=== PATIENT | male | born 1985 ===

== ENCOUNTER 2018-05-08 03:31 | Inpatient (IN) | payer MEDICAID ==
[2018-05-08] MEDS ORDERED: Hydrogen Peroxide 3% Soln (480ml) TP ONE (03:52)
[2018-05-08] MEDS ORDERED: Multivitamin (MVI) 10 ML, Folic Acid 1 MG, Thiamine 100 MG in Dextrose 5%/0.45% NS 1,00... IV ONE (03:57)
[2018-05-08] MEDS ORDERED: Tdap Vaccine 0.5 ml Vial (10-64 yrs) IM ONE ×2 (03:57→04:18)
[2018-05-08] MEDS ORDERED: Lidocaine 1% 20 MG/2 ML PF AMP ONE (04:20)
--- NOTE | 2018-05-08 04:27 | ED PDOC ---
HPI: Psych/Substance Abuse Time Seen by Provider: 05/08/18 03:33 Chief Complaint (Nursing): Psychiatric Evaluation Chief Complaint (Provider): Psychiatric Evaluation History Per: Patient History/Exam Limitations: no limitations Current Symptoms Are (Timing): Still Present Suicide/Self Injury Attempted (Context): Cut Wrists Modifying Factor(s): None Associated Symptoms: Anxiety, Depression Additional Complaint(s): 32 year old male with pmHx of alcohol dependency, is brought in via EMS for evaluation of self-inflicted wounds to bilateral wrists after feeling anxious and depressed prior to arrival. Patient was recently discharged at [facility] after a 2-night admission and upon returning home, he admits to cutting wrists with a hunting knife when finding out his parents were getting arrested. He states that his family is sending him to [place], after an intervention, for rehab with no alcohol use since 05/04/18. PMD: Dr. Contreras Tim Past Medical History Reviewed: Historical Data, Nursing Documentation, Vital Signs Vital Signs: Last Vital Signs Temp 98.7 F 05/08/18 03:35 Pulse 132 H 05/08/18 03:35 Resp 18 05/08/18 03:35 BP 153/111 H 05/08/18 03:35 Pulse Ox 98 05/08/18 03:35 - Surgical History Surgical History: No Surg Hx - Family History Family History: States: Unknown Family Hx - Social History Current smoker - smoking cessation education provided: No Alcohol: > 2 Drinks/Day Drugs: Denies - Home Medications Home Medications: Ambulatory Orders Medication Instructions Recorded Fluoxetine HCl [Prozac] 40 mg PO DAILY 05/08/18 Folic Acid 1 mg PO DAILY 05/08/18 Thiamine Mononitrate [Vitamin B-1] 300 mg PO DAILY 05/08/18 Acetaminophen [Tylenol 325mg tab] 650 mg PO Q6 PRN tab 05/10/18 Enoxaparin [Lovenox] 40 mg SC DAILY syr 05/10/18 LORazepam [Ativan] 2 mg IVP Q4 PRN vial 05/10/18 Pantoprazole [Protonix EC Tab] 40 mg PO DAILY ect 05/10/18 - Allergies Allergies/Adverse Reactions: Allergies Allergy/AdvReac Type Severity Reaction Status Date / Time No Known Allergies Allergy Verified 05/08/18 03:43 Review of Systems ROS Statement: Except As Marked, All Systems Reviewed And Found Negative Musculoskeletal: Positive for: Other (self-inflicted wounds to bilateral wrists) Psych: Positive for: Anxiety, Depression Physical Exam - Reviewed Nursing Documentation Reviewed: Yes Vital Signs Reviewed: Yes - Physical Exam Appears: Positive for: No Acute Distress Gastrointestinal/Abdominal: Positive for: Other (obese) Extremity: Positive for: Other ((1) 3cm linear laceration to right wrist; (2) 3cm linear laceration to left wrist. (-) active bleeding. Right knee abrasion. Scattered ecchymosis to bilateral LE.) - Laboratory Results Result Diagrams: 05/10/18 05:30 05/10/18 05:30 - ECG O2 Sat by Pulse Oximetry: 98 (RA) Pulse Ox Interpretation: Normal Medical Decision Making Medical Decision Making: Initial Impression: 32 y/o male s/p self-inflicted wounds in setting of known alcohol dependency and recent hospitalization Initial Plan: * EKG * Alcohol serum * CMP * Drug screen, urine * Crisis evaluation * Urine dipstick * CBC * Adacel 0.5ml IM * Dextrose 100mg IV per 250mls/hr * Librium 25mg PO * Accucheck * UA * 1:1 OBS Time: 424 --Bilateral wound repair performed by JOHN Baker (see procedure note). Time: 509 --Labs reviewed: demonstrates that patient did not ingest alcohol. --Speech and thought process indicative of alcohol withdrawal. At times, patient has confabulatory thoughts. Noted tachycardic on monitor, most likely, relating to alcohol withdrawal. Presently, not appropriate for psychiatric clearance due to tachycardia and probable DTS. Case referred to Dr. Sutherland. Time: 602 --Discussed case with Dr. Sutherland whom accepts patient for admission. Scribe Attestation: Documented by Sunni Fraser, acting as a scribe for Bartolo Vines MD. Provider Scribe Attestation: All medical record entries made by the Scribe were at my direction and personally dictated by me. I have reviewed the chart and agree that the record accurately reflects my personal performance of the history, physical exam, medical decision making, and the department course for this patient. I have also personally directed, reviewed, and agree with the discharge instructions and disposition. Procedures - Time-Out PA/Tech: Olivia - Laceration/Wound Repair Bilateral Wrist Wound Length (cm): 3 (bilaterally) Wound's Depth, Shape: superficial Wound Explored: clean Irrigated w/ Saline (ccs): 1 Anesthesia: 1% Lidocaine Wound Debrided: minimal Wound Complexity: Simple Progress: Consent verbally obtained from patient. Right wrist wound: closed with dermabond. Left wrist wound: closed with (10) 5.0 Nylon sutures. Patient tolerated procedure well without difficulty. Disposition - Clinical Impression Clinical Impression: Suicidal behavior with attempted self-injury, ETOH abuse - Patient ED Disposition Is Patient to be Admitted: Yes - Disposition Disposition Time: 05:00 Condition: FAIR
[2018-05-08 04:28] LABS: BASO # 0.1 K/uL (0.0-0.2); BASO % 0.6 % (0.0-2.0); EOS # 0.1 K/uL (0.0-0.7); EOS % 0.5 % (0.0-4.0); HEMOGLOBIN 16.3 g/dL (12.0-18.0); LYMPH # 1.5 K/uL (1.0-4.3); MEAN CELL VOLUME 91.1 fl (80.0-94.0); MEAN CORPUSCULAR HGB CONC 35.1 g/dL (33.0-37.0); MEAN PLATELET VOLUME 8.3 fl (7.2-11.7); MONO % 6.9 % (0.0-10.0); NRBC % 0.1 % (0.0-0.0); RBC 5.09 Mil/uL (4.40-5.90); RED CELL DISTRIBUTION WIDTH 12.7 % (11.5-14.5); WHITE BLOOD COUNT 14.6 K/uL (4.8-10.8)
[2018-05-08 04:47] LABS: ALB/GLOB RATIO 1.1 (1.0-2.1); ALT/SGPT 45 U/L (21-72); AST/SGOT 84 U/L (17-59); BLOOD UREA NITROGEN 15 mg/dl (9-20); CALCIUM 9.4 mg/dL (8.4-10.2); GFR NON-AFRICAN AMERICAN > 60
[2018-05-08 04:59] LABS: URINE BACTERIA RARE (<OCC); URINE BILIRUBIN NEGATIVE (NEGATIVE); URINE BLOOD SMALL (NEGATIVE); URINE CLARITY SLIGHTY-CLOUDY (Clear); URINE COLOR AMBER (YELLOW); URINE GLUCOSE (UA) 50 mg/dL (Normal); URINE LEUKOCYTE ESTERASE NEG Leu/uL (Negative); URINE PROTEIN >=500 mg/dL (NEGATIVE)
[2018-05-08 05:58] LABS: BARBITURATES, UR NEGATIVE (NEGATIVE); BENZODIAZEPINES, UR POSITIVE (NEGATIVE); OPIATES, UR NEGATIVE (NEGATIVE); PHENCYCLIDINE, UR NEGATIVE (NEGATIVE)
--- NOTE | 2018-05-08 08:00 | RAD ---
Date of service: 05/08/2018 HISTORY: admit COMPARISON: No prior. FINDINGS: LUNGS: Inspiratory volume appears somewhat limited. No acute infiltrate identified bilaterally nevertheless. Calcified granuloma question at the left base versus costochondral calcification. PLEURA: No significant pleural effusion identified, no pneumothorax apparent. CARDIOVASCULAR: Normal. OSSEOUS STRUCTURES: No significant abnormalities. VISUALIZED UPPER ABDOMEN: Normal. OTHER FINDINGS: None. IMPRESSION: Limited history volume. No acute infiltrate, pleural effusion or pneumothorax. Cardiomediastinal silhouette unremarkable.
[2018-05-08] MEDS ORDERED: Dextrose 5%/0.45% NS 1,000 ML IV SCH (09:30)
--- NOTE | 2018-05-08 09:39 | CP.PCM.HP ---
History of Present Illness - History of Present Illness History of Present Illness: HPI: 32 YO male with ETOH abuse was brought to [facility] ED via EMS after pt cut his wrist. Pt states that he was recently discharged from [facility] on admitted for withdrawal. Pt states that when he got home, he found out that his parents were arrested, pt was feeling depressed and cut his wrists. Additionally pt states that he has been binge drinking for past couple of days prior to being admitted to [place]. Feels "okay now," denies chest pain, abdominal pain, n/v/d/c, fevers. Denies headache, visual/auditory or tactile hallucinations. PMD: Dr. Tim PMHx: ETOH abuse SurgHx: R knee surgery FHx: Hx of DM in mother and siblings SHx: lives with family, denies smoking, hx of cocaine use (last use when he was 24), and ETOH (last drink was "few days ago" drank 3 bottles of whiskey) Allergies: NKDA Present on Admission - Present on Admission Any Indicators Present on Admission: No Review of Systems - Constitutional Constitutional: absent: Headache - Cardiovascular Cardiovascular: absent: Chest Pain, Dyspnea - Respiratory Respiratory: absent: Cough, Dyspnea - Gastrointestinal Gastrointestinal: absent: Abdominal Pain, Diarrhea, Nausea, Vomiting - Genitourinary Genitourinary: absent: Dysuria - Neurological Neurological: absent: Dizziness, Headaches Past Patient History - Past Social History Alcohol: > 2 Drinks/Day Drugs: Cocaine (last use when pt was 24) - CARDIAC Hx Cardiac Disorders: No Hx Hypertension: No - PULMONARY Hx Tuberculosis: No - NEUROLOGICAL HX Cerebrovascular Accident: No Hx Seizures: No - ENDOCRINE/METABOLIC Hx Endocrine Disorders: Yes ("pre-diabetic") - HEMATOLOGICAL/ONCOLOGICAL Hx Cancer: No Hx Human Immunodeficiency Virus (HIV): No - GENITOURINARY/GYNECOLOGICAL Hx Sexually Transmitted Disorders: No - PSYCHIATRIC Hx Psychophysiologic Disorder: Yes Hx Depression: Yes Hx Substance Use: No Other/Comment: Hx alcohol abuse - SURGICAL HISTORY Hx Surgeries: Yes Hx Orthopedic Surgery: Yes (Right knee meniscus repair) - ANESTHESIA Hx Anesthesia: Yes Hx Anesthesia Reactions: No Hx Malignant Hyperthermia: No Meds Allergies/Adverse Reactions: Allergies Allergy/AdvReac Type Severity Reaction Status Date / Time No Known Allergies Allergy Verified 05/08/18 03:43 Physical Exam - Constitutional Appears: No Acute Distress, Other (lethergic ) - Head Exam Head Exam: NORMAL INSPECTION - Eye Exam Eye Exam: Normal appearance - ENT Exam ENT Exam: Mucous Membranes Moist - Respiratory Exam Respiratory Exam: Clear to Auscultation Bilateral. absent: Wheezes - Cardiovascular Exam Cardiovascular Exam: REGULAR RHYTHM, +S1, +S2 - GI/Abdominal Exam GI & Abdominal Exam: Normal Bowel Sounds, Soft. absent: Tenderness - Extremities Exam Extremities exam: Positive for: normal inspection Additional comments: mild tremor when arms extended - Neurological Exam Neurological exam: Alert, Oriented x3 Results - Vital Signs Recent Vital Signs: Last Vital Signs Temp 98 F 05/08/18 07:29 Pulse 103 H 05/08/18 07:29 Resp 20 05/08/18 07:29 BP 139/86 05/08/18 07:29 Pulse Ox 99 05/08/18 07:29 - Labs Result Diagrams: 05/08/18 04:10 05/08/18 04:10 Labs: Laboratory Results - last 24 hr 05/08/18 05/08/18 05/08/18 03:49 04:10 04:10 WBC 14.6 H RBC 5.09 Hgb 16.3 Hct 46.4 MCV 91.1 MCH 32.0 H MCHC 35.1 RDW 12.7 Plt Count 203 MPV 8.3 Neut % (Auto) 82.0 H Lymph % (Auto) 10.0 L [place] % (Auto) 6.9 Eos % (Auto) 0.5 Baso % (Auto) 0.6 Neut # (Auto) 12.0 H Lymph # (Auto) 1.5 [place] # (Auto) 1.0 H Eos # (Auto) 0.1 Baso # (Auto) 0.1 Sodium 137 Potassium 3.8 Chloride 99 Carbon Dioxide 21 L Anion Gap 21 H BUN 15 Creatinine 0.7 L Est GFR ( Amer) > 60 Est GFR (Non-Af Amer) > 60 POC Glucose (mg/dL) 161 H Random Glucose 179 H Calcium 9.4 Magnesium Total Bilirubin 2.9 H AST 84 H ALT 45 Alkaline Phosphatase 100 Total Protein 9.4 H Albumin 5.0 Globulin 4.4 H Albumin/Globulin Ratio 1.1 TSH 3rd Generation Urine Color Urine Clarity Urine pH Ur Specific [place] Urine Protein Urine Glucose (UA) Urine Ketones Urine Blood Urine Nitrate Urine Bilirubin Urine Urobilinogen Ur Leukocyte Esterase Urine RBC (Auto) Urine Microscopic WBC Urine Bacteria Urine Opiates Screen Urine Methadone Screen Ur Barbiturates Screen Ur Phencyclidine Scrn Ur Amphetamines Screen U Benzodiazepines Scrn U Oth Cocaine Metabols U Cannabinoids Screen Alcohol, Quantitative < 10 05/08/18 05/08/18 05/08/18 04:51 04:51 06:17 WBC RBC Hgb Hct MCV MCH MCHC RDW Plt Count MPV Neut % (Auto) Lymph % (Auto) [place] % (Auto) Eos % (Auto) Baso % (Auto) Neut # (Auto) Lymph # (Auto) [place] # (Auto) Eos # (Auto) Baso # (Auto) Sodium Potassium Chloride Carbon Dioxide Anion Gap BUN Creatinine Est GFR ( Amer) Est GFR (Non-Af Amer) POC Glucose (mg/dL) Random Glucose Calcium Magnesium 2.2 Total Bilirubin AST ALT Alkaline Phosphatase Total Protein Albumin Globulin Albumin/Globulin Ratio TSH 3rd Generation 2.29 Urine Color Ros[place]inda Urine Clarity Slighty-cloudy Urine pH 6.0 Ur Specific [place] 1.033 H Urine Protein >=500 Urine Glucose (UA) 50 Urine Ketones 20 Urine Blood Small Urine Nitrate Negative Urine Bilirubin Negative Urine Urobilinogen 4.0 Ur Leukocyte Esterase Neg Urine RBC (Auto) 21 H Urine Microscopic WBC 4 Urine Bacteria Rare Urine Opiates Screen Negative Urine Methadone Screen Negative Ur Barbiturates Screen Negative Ur Phencyclidine Scrn Negative Ur Amphetamines Screen Negative U Benzodiazepines Scrn Positive U Oth Cocaine Metabols Negative U Cannabinoids Screen Negative Alcohol, Quantitative Assessment & Plan (1) ETOH abuse Status: Acute (2) Suicidal behavior with attempted self-injury Status: Acute - Assessment and Plan (Free Text) Assessment: Assessment/Plan: 32 YO male with ETOH abuse is admitted for alcohol withdrawal and suicide attempt. -psychiatry on board -admit to tele for monitor DTs -VS reviewed sig for tachycardia 108. -CIWA score currently 4 -Ativan 2mg for CIWA >8 -blood work reviewed; hemoconcentrated -repeat labs in AM Pt seen and examined with Dr. Sutherland
[2018-05-08] MEDS: Dextrose 5%/Lactated Ringer's 1,000 ML IV SCH ×2 (09:41→17:54)
--- NOTE | 2018-05-08 15:45 | CP.PCM.CON ---
History of Present Illness - History of Present Illness History of Present Illness: pt is a 32 YO male with history of alcohol abuse and deprssion was brought to [facility] ED via EMS after pt cut his wrist. Pt states that he was recently discharged from [facility] , last friday, where he was admitted for detox, after discharge pt continued to use alcohol about two bottles of whisky daily, on day of admiission, he started experiencing psychotic symptoms, with visual hallucinations, seeing people invading his home, also seeing his parents being arrested, became very fearful and depressed, so he cut his wrist while intoxicated, pt then called police so they can help his parents pt had at least three prior alcohol detox and one inpatient admnission at [facility] pt currently depressed and tearful, low energy, passive suicidal ideation, reported occasional non command auditory hallucinations Past Patient History - Past Social History Alcohol: > 2 Drinks/Day Drugs: Cocaine (last use when pt was 24) - CARDIAC Hx Cardiac Disorders: No - PULMONARY Hx Tuberculosis: No - NEUROLOGICAL HX Cerebrovascular Accident: No Hx Seizures: No - ENDOCRINE/METABOLIC Hx Endocrine Disorders: Yes ("pre-diabetic") - HEMATOLOGICAL/ONCOLOGICAL Hx Cancer: No Hx Human Immunodeficiency Virus (HIV): No - GENITOURINARY/GYNECOLOGICAL Hx Sexually Transmitted Disorders: No - PSYCHIATRIC Hx Psychophysiologic Disorder: Yes - SURGICAL HISTORY Hx Surgeries: Yes Hx Orthopedic Surgery: Yes (Right knee meniscus repair) - ANESTHESIA Hx Anesthesia: Yes Hx Anesthesia Reactions: No Hx Malignant Hyperthermia: No Meds Allergies/Adverse Reactions: Allergies Allergy/AdvReac Type Severity Reaction Status Date / Time No Known Allergies Allergy Verified 05/08/18 03:43 - Medications Medications: Current Medications Enoxaparin Sodium (Lovenox) 40 mg SC DAILY [facility] PRN Reason: Protocol Folic Acid (Folic Acid) 1 mg PO DAILY [facility] Dextrose/Lactated Ringer's (Dextrose 5%/Lactated Ringer's) 1,000 mls @ 120 mls/ hr IV .[id number] [facility] Stop: 05/09/18 09:25 Last Admin: 05/08/18 09:41 Dose: 120 mls/hr Lorazepam (Ativan) 2 mg IVP Q4 PRN PRN Reason: Agitation Pantoprazole Sodium (Protonix Ec Tab) 40 mg PO DAILY [facility] Thiamine HCl (Vitamin B1 Tab) 100 mg PO TID [facility] Physical Exam - Psychiatric Exam Additional comments: pt seen in bed, depressed mood and affect, speech soft and slow, tearful, thought form coherent , alert awake ox3 denied any current psychotic symptoms, non elicited Results - Vital Signs Recent Vital Signs: Last Vital Signs Temp 97 F L 05/08/18 09:29 Pulse 89 05/08/18 14:55 Resp 19 05/08/18 14:55 BP 138/79 05/08/18 14:55 Pulse Ox 98 05/08/18 13:53 - Labs Result Diagrams: 05/08/18 04:10 05/08/18 04:10 Labs: Laboratory Results - last 24 hr 05/08/18 05/08/18 05/08/18 03:49 04:10 04:10 WBC 14.6 H RBC 5.09 Hgb 16.3 Hct 46.4 MCV 91.1 MCH 32.0 H MCHC 35.1 RDW 12.7 Plt Count 203 MPV 8.3 Neut % (Auto) 82.0 H Lymph % (Auto) 10.0 L [place] % (Auto) 6.9 Eos % (Auto) 0.5 Baso % (Auto) 0.6 Neut # (Auto) 12.0 H Lymph # (Auto) 1.5 [place] # (Auto) 1.0 H Eos # (Auto) 0.1 Baso # (Auto) 0.1 Sodium 137 Potassium 3.8 Chloride 99 Carbon Dioxide 21 L Anion Gap 21 H BUN 15 Creatinine 0.7 L Est GFR ( Amer) > 60 Est GFR (Non-Af Amer) > 60 POC Glucose (mg/dL) 161 H Random Glucose 179 H Calcium 9.4 Magnesium Total Bilirubin 2.9 H AST 84 H ALT 45 Alkaline Phosphatase 100 Total Protein 9.4 H Albumin 5.0 Globulin 4.4 H Albumin/Globulin Ratio 1.1 TSH 3rd Generation Urine Color Urine Clarity Urine pH Ur Specific [place] Urine Protein Urine Glucose (UA) Urine Ketones Urine Blood Urine Nitrate Urine Bilirubin Urine Urobilinogen Ur Leukocyte Esterase Urine RBC (Auto) Urine Microscopic WBC Urine Bacteria Urine Opiates Screen Urine Methadone Screen Ur Barbiturates Screen Ur Phencyclidine Scrn Ur Amphetamines Screen U Benzodiazepines Scrn U Oth Cocaine Metabols U Cannabinoids Screen Alcohol, Quantitative < 10 05/08/18 05/08/18 05/08/18 04:51 04:51 06:17 WBC RBC Hgb Hct MCV MCH MCHC RDW Plt Count MPV Neut % (Auto) Lymph % (Auto) [place] % (Auto) Eos % (Auto) Baso % (Auto) Neut # (Auto) Lymph # (Auto) [place] # (Auto) Eos # (Auto) Baso # (Auto) Sodium Potassium Chloride Carbon Dioxide Anion Gap BUN Creatinine Est GFR ( Amer) Est GFR (Non-Af Amer) POC Glucose (mg/dL) Random Glucose Calcium Magnesium 2.2 Total Bilirubin AST ALT Alkaline Phosphatase Total Protein Albumin Globulin Albumin/Globulin Ratio TSH 3rd Generation 2.29 Urine Color Rosalinda Urine Clarity Slighty-cloudy Urine pH 6.0 Ur Specific [place] 1.033 H Urine Protein >=500 Urine Glucose (UA) 50 Urine Ketones 20 Urine Blood Small Urine Nitrate Negative Urine Bilirubin Negative Urine Urobilinogen 4.0 Ur Leukocyte Esterase Neg Urine RBC (Auto) 21 H Urine Microscopic WBC 4 Urine Bacteria Rare Urine Opiates Screen Negative Urine Methadone Screen Negative Ur Barbiturates Screen Negative Ur Phencyclidine Scrn Negative Ur Amphetamines Screen Negative U Benzodiazepines Scrn Positive U Oth Cocaine Metabols Negative U Cannabinoids Screen Negative Alcohol, Quantitative 05/08/18 09:50 WBC RBC Hgb Hct MCV MCH MCHC RDW Plt Count MPV Neut % (Auto) Lymph % (Auto) [place] % (Auto) Eos % (Auto) Baso % (Auto) Neut # (Auto) Lymph # (Auto) [place] # (Auto) Eos # (Auto) Baso # (Auto) Sodium Potassium Chloride Carbon Dioxide Anion Gap BUN Creatinine Est GFR ( Amer) Est GFR (Non-Af Amer) POC Glucose (mg/dL) 139 H Random Glucose Calcium Magnesium Total Bilirubin AST ALT Alkaline Phosphatase Total Protein Albumin Globulin Albumin/Globulin Ratio TSH 3rd Generation Urine Color Urine Clarity Urine pH Ur Specific [place] Urine Protein Urine Glucose (UA) Urine Ketones Urine Blood Urine Nitrate Urine Bilirubin Urine Urobilinogen Ur Leukocyte Esterase Urine RBC (Auto) Urine Microscopic WBC Urine Bacteria Urine Opiates Screen Urine Methadone Screen Ur Barbiturates Screen Ur Phencyclidine Scrn Ur Amphetamines Screen U Benzodiazepines Scrn U Oth Cocaine Metabols U Cannabinoids Screen Alcohol, Quantitative Assessment & Plan - Assessment and Plan (Free Text) Assessment: pending delirium tremens alcohol induced mood disorder with depressive features alcohol use severe Plan: pt at current mental status requires admission to psychiatric unit for stabilization continue with librium protocl pt to be admitted to psychiatry upon medical clearance, pt agreed to sign for voluntary admission to psychiatry
[2018-05-08] MEDS ORDERED: Pneumococcal 23-Valent Vaccine IM ONE (16:45)
[2018-05-09] MEDS: Dextrose 5%/Lactated Ringer's 1,000 ML IV SCH (02:00)
[2018-05-09 07:27] LABS: BASO # 0.1 K/uL (0.0-0.2); BASO % 0.6 % (0.0-2.0); EOS # 0.7 K/uL (0.0-0.7); EOS % 7.1 % (0.0-4.0); HEMOGLOBIN 15.2 g/dL (12.0-18.0); LYMPH # 2.5 K/uL (1.0-4.3); LYMPH % 24.2 % (20.0-40.0); MEAN CELL VOLUME 91.8 fl (80.0-94.0); MEAN CORPUSCULAR HEMOGLOBIN 32.2 pg (27.0-31.0); MEAN CORPUSCULAR HGB CONC 35.1 g/dL (33.0-37.0); MEAN PLATELET VOLUME 8.3 fl (7.2-11.7); MONO # 0.8 K/uL (0.0-0.8); MONO % 7.3 % (0.0-10.0); NEUT # 6.3 K/uL (1.8-7.0); NEUT % 60.8 % (50.0-75.0); RBC 4.7 Mil/uL (4.40-5.90); RED CELL DISTRIBUTION WIDTH 12.6 % (11.5-14.5); WHITE BLOOD COUNT 10.4 K/uL (4.8-10.8)
[2018-05-09 08:04] LABS: LDL CHOLESTEROL 127 mg/dL (0-129)
[2018-05-09 08:17] LABS: ALB/GLOB RATIO 1.2 (1.0-2.1); ALBUMIN 4.4 g/dL (3.5-5.0); ALT/SGPT 79 U/L (21-72); AST/SGOT 151 U/L (17-59); BLOOD UREA NITROGEN 10 mg/dl (9-20); CALCIUM 9.1 mg/dL (8.4-10.2); GFR NON-AFRICAN AMERICAN > 60; HDL CHOLESTEROL 55 MG/DL (30-70)
[2018-05-09] MEDS: Pantoprazole 40 mg EC Tab PO SCH (08:38)
[2018-05-09] MEDS: Enoxaparin 40 mg Syringe SC SCH (08:39)
--- NOTE | 2018-05-09 13:42 | PN ---
DATE: 05/09/2018 SUBJECTIVE: The patient seen and examined. The patient is seen for Dr. Sutherland while he is away. The patient remains in progressive care unit and telemetry monitoring with one-to-one observation for safety. The patient overall feels okay. Denies any chest pain or shortness of breath. Complains of bilateral wrist pain from symptoms. Feels little bit of nauseous, but no actual vomiting today. PHYSICAL EXAMINATION: GENERAL: The patient is in no acute distress. VITAL SIGNS: Stable. HEART: S1 and S2, normal and regular. LUNGS: Good bilateral air exchange. ABDOMEN: Soft and nontender. No organomegaly. No fluid. Bowel sounds are plus and normal. EXTREMITIES: No edema. No calf swelling. No tenderness. No acute ischemia. SPRAY CREW: Exam is essentially unchanged. There is no sign of any acute gross focal motor or sensory neurological deficits or any withdrawal symptoms. DIAGNOSTIC DATA: Available diagnostic data reviewed. Telemetry monitoring does not reveal any significant arrhythmias. ASSESSMENT AND PLAN: Overall, the patient's general medical condition is stable. Plan as ordered . Akbar Rice MD
--- NOTE | 2018-05-09 20:33 | CARD ---
APPROVED REPORT Date of service: 05/08/2018 EKG Measurement Heart [id number] <Conclusion> Sinus tachycardia Left axis deviation Anterolateral infarct, age undetermined Abnormal ECG
[2018-05-10 07:15] LABS: HEMOGLOBIN 14.1 g/dL (12.0-18.0); MEAN CELL VOLUME 91.7 fl (80.0-94.0); MEAN CORPUSCULAR HEMOGLOBIN 32.5 pg (27.0-31.0); MEAN CORPUSCULAR HGB CONC 35.5 g/dL (33.0-37.0); RBC 4.33 Mil/uL (4.40-5.90); RED CELL DISTRIBUTION WIDTH 12.5 % (11.5-14.5); WHITE BLOOD COUNT 8.6 K/uL (4.8-10.8)
[2018-05-10 07:40] LABS: ALB/GLOB RATIO 1.1 (1.0-2.1); ALBUMIN 3.9 g/dL (3.5-5.0); ALT/SGPT 86 U/L (21-72); AST/SGOT 136 U/L (17-59); BLOOD UREA NITROGEN 9 mg/dl (9-20); CALCIUM 8.8 mg/dL (8.4-10.2); GFR NON-AFRICAN AMERICAN > 60
[2018-05-10 08:08] VITALS: O2SAT 98
[2018-05-10] MEDS: Pantoprazole 40 mg EC Tab PO SCH (09:00)
[2018-05-10] MEDS: Enoxaparin 40 mg Syringe SC SCH (09:00)
[2018-05-10 12:10] VITALS: BP 122/71; PULSE 76; RESP 18; TEMP 98.2
--- NOTE | 2018-05-11 08:49 | PN ---
DATE: 05/10/2018 SUBJECTIVE: The patient seen and examined. Interim events noted. The patient remains in progressive care unit on telemetry monitoring with one-to-one observation for safety. The patient feels better. Denies any chest pain or shortness of breath. Wrist pain is improving. No symptoms of withdrawal. No acute suicidal ideation or planning. PHYSICAL EXAMINATION: GENERAL: The patient is in no acute distress. VITAL SIGNS: Stable. HEART: S1 and S2. Normal and regular. LUNGS: Good bilateral air exchange. ABDOMEN: Soft and nontender. EXTREMITIES: No edema. No calf swelling. No tenderness. No acute ischemia. EXPERIMENTAL BOX TESTER: Essentially unchanged. Akbar Rice MD
== END 2018-05-10 15:10 | DRG 751 ==
LOC: H.ER 03:31 → H.ERHOLD 05:10 → H.TEL 15:19
PROVIDERS: ADMIT Family Medicine; ATTEND Family Medicine
PROC: 3E0234Z Introduction of Serum, Toxoid and Vaccine into Muscle, Percutaneous Approach (ICD-10-PCS; principal; 2018-05-08)
PROC: 0HQEXZZ Repair Left Lower Arm Skin, External Approach (ICD-10-PCS; 2018-05-08)
PROC: 0HQDXZZ Repair Right Lower Arm Skin, External Approach (ICD-10-PCS; 2018-05-08)
DX: F10.231 Alcohol dependence with withdrawal delirium (principal); S61.511A Laceration without foreign body of right wrist, initial encounter; F10.24 Alcohol dependence with alcohol-induced mood disorder; S61.512A Laceration without foreign body of left wrist, initial encounter; Z23 Encounter for immunization; X78.1XXA Intentional self-harm by knife, initial encounter; F32.9 Major depressive disorder, single episode, unspecified; F41.9 Anxiety disorder, unspecified

== ENCOUNTER 2018-05-10 15:27 | Inpatient (IN) | payer MEDICAID ==
[2018-05-10] MEDS ORDERED: Magnesium Hydroxide Susp 30 ml UD PO PRN (16:10)
[2018-05-10] MEDS ORDERED: Alum-Mag Hydrox-Simethicone Susp (30 mL) PO PRN (16:10)
[2018-05-10] MEDS ORDERED: DiphenhydrAMINE 50 mg/ml Inj IM PRN (16:25)
--- NOTE | 2018-05-10 16:45 | PCM.BM ---
Treatment assets and liabiliti Patient Assests: cooperative, educated, ADL independent, good interpersonal skills Patient Liabilities: substance abuse - Milieu Protocol Maintain good personal hygiene: daily Encourage regular showers, every shift Remind patient to perform daily oral care, every shift Assist patient to perform ADL's Conduct patient checks and document Observation sheet: Q15 minutes Maintain personal safety: every shift Educate patient to report safety concerns to staff, every shift Monitor environment for contraband/sharps Medication safety: Monitor for expected outcome, potential side effects: every shift, Assess barriers to learning: every shift, Assess readiness for medication education: every shift
--- NOTE | 2018-05-10 17:07 | PCM.BM ---
<MarbleIna bueno - Last Filed: 05/10/18 17:05> Treatment Plan Problems - Problems identified on initial assessmt Anxiety Date Initiated: 05/10/18 Time Initiated: 17:05 Assessment reference: NA Status: Active Denial Date Initiated: 05/10/18 Time Initiated: 17:06 Assessment reference: NA Status: Active Treatment assets and liabiliti Patient Assests: cooperative, ADL independent Patient Liabilities: substance abuse - Milieu Protocol Maintain good personal hygiene: daily Encourage regular showers, every shift Remind patient to perform daily oral care, every shift Assist patient to perform ADL's Conduct patient checks and document Observation sheet: Q15 minutes Maintain personal safety: every shift Educate patient to report safety concerns to staff, every shift Monitor environment for contraband/sharps Medication safety: Monitor for expected outcome, potential side effects: every shift, Assess barriers to learning: every shift, Assess readiness for medication education: every shift <Benjamin Ramos - Last Filed: 05/14/18 08:28> Family Contact Family involvement: Family/SO is involved Family contact: Family has been contacted by patient, Patient declines to allow family contact at present Family contact name: Pt does not want staff to speak with family. - Goals for Treatment Patient goals for treatment: Pt has identified drinking as a problem and reported he would like to attend groups/therapy to build coping skills, identify triggers, and build his self-esteem and identitity. Discharge/Continuing Care - Education Needs Education Needs: Patient Medication, Patient Diagnosis/Disease Process, Patient Coping Skills, Patient Community resources, Patient Aftercare Safety Plan - Discharge Discharge Criteria: Tolerates medication w/o severe side effects, Free of Suicidal thoughts, Free of paranoid thoughts, Free of agitation, Normal sleep pattern, Ability to care for self, No longer exhibiting s/s of withdrawal, Reduction of target symptoms Discharge to:: Home, With Family - Treatment Team Participation Patient/Family/SO Statement: 05/13/18 10:15 Pt was seen in treatment team and reported he woke up feeling "good/better." Pt reported that he does at times still feel sad and depressed. Pt spoke about meeting John during the substance abuse group and wanted to continue outpatient treatment there. Pt reported that he does feel restless and anxious at times, but this is diminishing. Pt identified his family as supports and how they are committed to helping him fight this illness. Medications were discussed and pt reported that the Benadryl has helped with sleep and the Neurontin reduced his anxiety. Outpatient levels of care were discussed and pt spoke about how he felt he needed more time on the unit to feel confident and safe upon discharge. Pt denied SI/HI and AVT hallucinations. Discussed with Family/SO: No Was Patient/Family/SO present at Treatment Team Meeting: Yes <Elaina Melissa - Last Filed: 05/18/18 08:58> - Diagnosis (1) ETOH abuse Status: Acute Interventions: 05/18/18 08:58 motivational therapy
--- NOTE | 2018-05-11 14:34 | PCM.PSYCH ---
Initial Psychiatric Evaluation - Initial Psychiatric Evaluation Type of Admission: Voluntary Legal Status: Capacity Chief Complaint (in patient's own words): I started seeing scary things Patient's Reaction to Hospitalization: pt requested help History of Present Illness and Precipitating Events: pt is a 32 YO male with history of alcohol abuse and deprssion was brought to [facility] ED via EMS after pt cut his wrist. Pt states that he was recently discharged from [facility] , last friday, where he was admitted for detox, after discharge pt continued to use alcohol about two bottles of whisky daily, on day of admission, he started experiencing psychotic symptoms, with visual hallucinations, seeing people invading his home, also seeing his parents being arrested, became very fearful and depressed, so he cut his wrist while intoxicated, pt then called police so they can help his parents pt had at least three prior alcohol detox and one inpatient admission at [facility] pt currently depressed and tearful, low energy,low motivation, passive suicidal ideation, denied active intent or plan on the unit, denid any current psychotic symptoms, reported increased anxiety Current Medications: Active Medications Generic Name Dose Route Start Last Admin Trade Name Freq PRN Reason Stop Dose Admin Al Hydrox/Mg Hydrox/Simethicone 30 ml 05/10/18 16:10 Maalox Plus 30 Ml PO Q4 PRN Dyspepsia Aspirin 81 mg 05/11/18 09:00 05/11/18 09:59 Aspirin Chewable PO 81 mg DAILY HAYLEY Administration Atorvastatin Calcium 20 mg 05/11/18 22:00 Lipitor PO HS HAYLEY Diphenhydramine HCl 50 mg 05/10/18 16:10 05/10/18 22:59 Benadryl PO 50 mg Q6 PRN Administration Extrapyramidal Symptoms Diphenhydramine HCl 50 mg 05/10/18 16:25 Benadryl IM Q6 PRN Restlessness Gabapentin 300 mg 05/11/18 13:00 05/11/18 13:41 Neurontin PO 300 mg TID HAYLEY Administration Haloperidol 5 mg 05/10/18 16:10 05/10/18 22:59 Haldol PO 5 mg Q4 PRN Administration Agitation Haloperidol Lactate 5 mg 05/10/18 16:10 Haldol IM Q4 PRN Agitation, Unable to Take PO Hydroxyzine Pamoate 50 mg 05/11/18 10:54 Vistaril PO Q8 PRN Anxiety Ibuprofen 600 mg 05/10/18 16:17 Motrin Tab PO Q6 PRN Pain, moderate (4-7) Magnesium Hydroxide 30 ml 05/10/18 16:10 Milk Of Magnesia PO HS PRN Constipation Metformin HCl 500 mg 05/11/18 08:00 05/11/18 09:59 Glucophage PO 500 mg BIDWM HAYLEY Administration Past Psychiatric History - Past Psychiatric History Explanation of prior treatment: pt has history of alcohol use since age 16, has hx of detox twice at [facility], HISTORY OF SELF MUTILATIVE BEHAVIOR WHILE INTOXICATED History of Family Illness: HX OF DEPRESSION AND ALCOHOL USE/ BIOLOGICAL FATHER SIDE Pertinent Medical Hx (Current Medical&Sleep Prob, Allergies): Allergies Allergy/AdvReac Type Severity Reaction Status Date / Time No Known Allergies Allergy Verified 05/08/18 03:43 Fluoxetine HCl [Prozac] 40 mg PO DAILY 05/08/18 Folic Acid 1 mg PO DAILY 05/08/18 Thiamine Mononitrate [Vitamin B-1] 300 mg PO DAILY 05/08/18 Acetaminophen [Tylenol 325mg tab] 650 mg PO Q6 PRN tab 05/10/18 Enoxaparin [Lovenox] 40 mg SC DAILY syr 05/10/18 LORazepam [Ativan] 2 mg IVP Q4 PRN vial 05/10/18 Pantoprazole [Protonix EC Tab] 40 mg PO DAILY ect 05/10/18 Mental Status Examination - Affect Affect: Constricted - Motor Activity Motor Activity: Psychomotor Retardation - Speech Speech: Relevant - Mood Mood: Depressed, Anxious - Formal Thought Process Formal Thought Process: Circumstantial - Hallucinations/Delusions Additional comments: pt denied any current perceptual disturbances - Obsessions/Compulsions Obsessions: No Compulsions: No - Cognitive Functions Orientation: Person, Place, Situation Sensorium: Alert Attention/Concentration: Attentive Judgement: Imparied, as evidence by: Poor judgement, Imparied, as evidence by: Lack of insight into illness - Risk Risk: Suicidal, Withdrawal, Self-mutilation, Diminished functioning - Strength & Assets Inventory Strength & Assets Inventory: Family support - Limitations Additional comments: poor compliance DSM 5 DX - DSM 5 DSM 5 Diagnosis: alcohol induced mood disorder with depressive features alcohol use disorder pending DT'S depression - Recommended/Plan of Treatment Treatment Recommendations and Plan of Treatment: start [id number] daily for depression neurontin 300mg tid for anxiety, motivational group and supportive therapy referral to rehab on discharge Projected ELOS: 5-7 days Prognosis: guarded
--- NOTE | 2018-05-11 20:46 | CON ---
DATE: 05/11/2018 CHIEF COMPLAINT: The patient's medical consult was called for management of medical issues. HISTORY OF PRESENT ILLNESS: This is a young male who was admitted to medical floor after a suicidal attempt and depression; however, the patient ended up cutting both of his wrists in an attempt to commit suicide due to family issues. The patient was admitted to medical floor and was stabilized and was on one-to-one observation and medically stabilized and was sent to psych unit for further optimization for psychiatric issues. REVIEW OF SYSTEMS: At this time is negative for headache, dizziness, syncope, loss of consciousness, chest pain, shortness of breath, nausea, vomiting, diarrhea, constipation, and new joint or extremity pain. Review of system of all other organ system is unremarkable. PAST MEDICAL HISTORY: According to the patient is unremarkable. PAST SURGICAL HISTORY: Unremarkable. PERSONAL HISTORY: The patient is apparently nonsmoker, nondrinker, no substance abuse. MEDICATIONS: The patient is not taking any medication. ALLERGIES: THE PATIENT IS NOT ALLERGIC TO ANY MEDICATION. FAMILY HISTORY: Noncontributory. PHYSICAL EXAMINATION: GENERAL: Well-built, well-nourished, overweight young male, in no acute distress. VITAL SIGNS: Temperature afebrile, pulse 80, respirations 18, blood pressure 136/76. HEENT: Pupils are reacting to light. No JVD. No thyromegaly. No lymphadenopathy. No nystagmus. Normocephalic, atraumatic skull. The patient is wearing glasses. HEART EXAM: S1, S2, normal and regular. No significant murmur, gallop, or rub is heard. LUNGS: Shows good bilateral air exchange. No rales or rhonchi. ABDOMEN: Soft, nontender. No organomegaly. No fluid. Bowel sounds are plus and normal. EXTREMITIES: The patient bilateral wrist injury from self-inflicted wound, which is healing nicely without any distal complication. No edema. No calf swelling or tenderness. No active ischemia. 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 DIAGNOSTIC DATA: Available diagnostic data reviewed. The patient's hemoglobin A1c is 7.2. The patient's cholesterol is 236. CONSULTING IMPRESSION: The patient with psychiatric issue, also has medical issue diagnoses of diabetes, elevated cholesterol, and morbid obesity. PLAN: As ordered. Treatment plan discussed with the patient at length. Akbar Rice MD
--- NOTE | 2018-05-12 12:57 | PN ---
DATE: 05/12/2018 SUBJECTIVE: The patient seen and examined. Interim events noted. The patient remains in unit. Feels okay. The patient had episodes of diarrhea most likely from metformin. No chest pain. No shortness of breath. No abdominal pain. PHYSICAL EXAMINATION: GENERAL: The patient is in no acute distress. VITAL SIGNS: Stable. HEART: S1 and S2. Normal and regular. LUNGS: Good bilateral air exchange. ABDOMEN: Soft and nontender. No organomegaly. No fluids. Bowel sounds are present and normal. No sign of acute abdomen. No guarding. No rigidity. No rebound. EXTREMITIES: No edema. No calf swelling. No tenderness. No acute ischemia. 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 DIAGNOSTIC DATA: Available diagnostic data reviewed. ASSESSMENT AND PLAN: Overall, the patient's general medical condition is stable. We will continue metformin for now. Plan as ordered. Case and plan discussed with the patient. Akbar Rice MD
--- NOTE | 2018-05-12 13:42 | PCM.PYCHPN ---
Psychiatric Progress Note - Psychiatric Progress Note Patient seen today, length of contact: pt evaluated discussed with team chart reviewed Patient Chief Complaint: I know I need to stop drinking Problems Identified/Issues Discussed: pt evaluated, reporting feeling less anxious, indicated, clearing off of the hallucinations and delusions, presenting with a much clear sensorium, depressed mood, related to the current effect of alcohol on his relation with his family members and on his level of functioning in his job motivational therapy provided, discussed with pt the need to join a ART program , pt agreed discussed increase in the dose of wellbutrin, no reported side effects pt denied any current thoughts of self harm, denied suicidal ideation Medical Problems: pt has history of alcohol use since age 16, has hx of detox twice at [facility], HISTORY OF SELF MUTILATIVE BEHAVIOR WHILE INTOXICATED DSM 5 Symptoms Update: alcohol induced mood disorder depression Medication Change: Yes (increase wellbutrin) Medical Record Reviewed: Yes Mental Status Examination - Cognitive Function Orientation: Person, Place, Situation Memory: Intact Fund of Knowledge: WNL Decription of patient's judgement and insights: partial insight poor judgment - Mood Mood: Depressed, Anxious - Affect Affect: Constricted - Speech Speech: Appropriate - Formal Thought Process Formal Thought Process: Circumstantial Psychotic Thoughts and Behaviors: pt denied any current perceptual disturbances - Suicidal Ideation Suicidal Ideation: No - Homicidal Ideation Homicidal Ideation: No Goal/Treatment Plan - Goal/Treatment Plan Need for Continued Stay: Severe depression anxiety, Discharge may exacerbated symptoms Progress Toward Problem(s) and Goals/Treatment Plan: increase wellbutrin 150mg daily for depression neurontin 300mg tid for anxiety, motivational group and supportive therapy referral to rehab on discharge
[2018-05-12] MEDS: buPROPion SR 150 MG TABLET PO SCH (16:37)
[2018-05-13] MEDS ORDERED: Glucagon Recombinant 1 mg Inj IM PRN (07:27)
[2018-05-13] MEDS ORDERED: Dextrose 50% SYRINGE Inj (50 ml) IV PRN (07:27)
[2018-05-13] MEDS: buPROPion SR 150 MG TABLET PO SCH (08:33)
[2018-05-13] MEDS: Insulin Lispro (humaLOG) 100 Units/ml Inj SC SCH ×4 (08:34→21:25)
--- NOTE | 2018-05-13 13:57 | PCM.PYCHPN ---
Psychiatric Progress Note - Psychiatric Progress Note Patient seen today, length of contact: pt evaluated discussed with team chart reviewed Patient Chief Complaint: I am worried I will relapse on alcohol if I am outside Problems Identified/Issues Discussed: pt evaluated with treatment team, reported feeling anxious, relates that to increased craving and worried about relapse on discharge motivational therapy provided, discussed with pt possible coping skills and management of triggers for relapse, discussed gradual increase in dose of wellbutrin , no reported side effects , pt agrees to join outpatient ART on discharge , also possible starting maintenance treatment pt denied any current thoughts of self harm, denied suicidal ideation Medical Problems: pt has history of alcohol use since age 16, has hx of detox twice at [facility], HISTORY OF SELF MUTILATIVE BEHAVIOR WHILE INTOXICATED DSM 5 Symptoms Update: alcohol induced mood disorder alcohol use disorder depression Medication Change: No Medical Record Reviewed: Yes Mental Status Examination - Cognitive Function Orientation: Person, Place, Situation Memory: Intact Attention: WNL Concentration: WNL Association: WNL Fund of Knowledge: WNL Decription of patient's judgement and insights: partial insight poor judgment - Mood Mood: Depressed, Anxious - Affect Affect: Constricted - Speech Speech: Appropriate - Formal Thought Process Formal Thought Process: Circumstantial Psychotic Thoughts and Behaviors: pt denied any current perceptual disturbances - Suicidal Ideation Suicidal Ideation: No - Homicidal Ideation Homicidal Ideation: No Goal/Treatment Plan - Goal/Treatment Plan Need for Continued Stay: Severe depression anxiety, Discharge may exacerbated symptoms Progress Toward Problem(s) and Goals/Treatment Plan: wellbutrin 150mg daily for depression neurontin 300mg tid for anxiety, start trazodone 100mg qhs for insomnia motivational group and supportive therapy referral to rehab on discharge
--- NOTE | 2018-05-13 14:18 | PN ---
Copied To: Akbar Rice MD Attending MD: Akbar Rice MD DATE: 05/13/2018 SUBJECTIVE: The patient is seen and examined. Interim events noted. Psychiatric followup and intervention noted and appreciated. The patient remains in adult psych unit. Feels okay. Denies any chest pain or shortness of breath. Diarrhea improved. PHYSICAL EXAMINATION: GENERAL: The patient is in no acute distress. VITAL SIGNS: Stable. HEART: S1 and S2, normal and regular. LUNGS: Good bilateral air exchange. ABDOMEN: Soft and nontender. EXTREMITIES: The patient has lesion. No sign of complication. No cellulitis. No bleeding. Healing nicely. No signs of gapping. No edema. No calf swelling. No tenderness. No acute ischemia. 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 DIAGNOSTIC DATA: Available diagnostic data reviewed. ASSESSMENT AND PLAN: Overall, the patient's general medical condition is stable. Tolerating medication for diabetes and cholesterol well without any significant side effect at this time. Plan as ordered. Case and plan discussed with the patient and nurses. Akbar Rice MD
[2018-05-14] MEDS: Insulin Lispro (humaLOG) 100 Units/ml Inj SC SCH ×4 (08:50→21:16)
[2018-05-14] MEDS: buPROPion SR 150 MG TABLET PO SCH (08:51)
--- NOTE | 2018-05-14 15:13 | PN ---
Copied To: Akbar Rice MD Attending MD: Akbar Rice MD DATE: 05/14/2018 SUBJECTIVE: The patient seen and examined. Interim events noted. Psychiatric followup and intervention noted and appreciated. The patient remains in adult psych unit. Feels okay. Denies any specific medical complaint. PHYSICAL EXAMINATION: GENERAL: The patient is in no acute distress. VITAL SIGNS: Stable. HEART: S1 and S2. Normal and regular. LUNGS: Good bilateral air entry. ABDOMEN: Soft, nontender. EXTREMITIES: The patient has bilateral wrist with right forearm stitch, site is clean. No sign of complication, cellulitis, or bleeding. No sign of distal complication. No edema. No calf swelling. No tenderness. No acute ischemia. 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 DIAGNOSTIC DATA: Available diagnostic data reviewed. ASSESSMENT AND PLAN: Overall, the patient's general medical condition is stable. Accu-Cheks are acceptable. The patient is tolerating diabetic and cholesterol medicine well. Plan as ordered. Akbar Rice MD
--- NOTE | 2018-05-14 15:42 | PCM.PYCHPN ---
Psychiatric Progress Note - Psychiatric Progress Note Patient seen today, length of contact: pt evaluated discussed with team chart reviewed Patient Chief Complaint: I felt sedated with the trazadone Problems Identified/Issues Discussed: pt evaluated , stating feeling sedated with current dose of trazadone, discussed decreasing dose, pt having good response to wellbutrin, feeling less depressed, pt however continues to be a high risk for relapse, reporting cravings for alcohol , motivational therapy provided and discussed possible starting vivitrol injection on discharge pt denied any current thoughts of self harm, denied suicidal ideation Medical Problems: pt has history of alcohol use since age 16, has hx of detox twice at [facility], HISTORY OF SELF MUTILATIVE BEHAVIOR WHILE INTOXICATED DSM 5 Symptoms Update: alcohol induced mood disorder depression Medication Change: No Medical Record Reviewed: Yes Mental Status Examination - Cognitive Function Orientation: Person, Place, Situation Memory: Intact Attention: WNL Concentration: WNL Association: WNL Fund of Knowledge: [facility] Decription of patient's judgement and insights: partial insight poor judgment - Mood Mood: Depressed, Anxious - Affect Affect: Constricted - Speech Speech: Appropriate - Formal Thought Process Formal Thought Process: Circumstantial Psychotic Thoughts and Behaviors: pt denied any current perceptual disturbances - Suicidal Ideation Suicidal Ideation: No - Homicidal Ideation Homicidal Ideation: No Goal/Treatment Plan - Goal/Treatment Plan Need for Continued Stay: Severe depression anxiety, Discharge may exacerbated symptoms Progress Toward Problem(s) and Goals/Treatment Plan: wellbutrin 150mg daily for depression neurontin 300mg tid for anxiety, decrease trazodone 50mg qhs for insomnia motivational group and supportive therapy referral to rehab on discharge
[2018-05-15] MEDS: buPROPion SR 150 MG TABLET PO SCH (08:26)
--- NOTE | 2018-05-15 13:29 | PN ---
Copied To: Akbar Rice MD Attending MD: Akbar Rice MD DATE: 05/15/2018 SUBJECTIVE: The patient seen and examined. Interim events noted. Psychiatric followup noted and appreciated. The patient remains in adult psych unit. Feels okay. Complains of discomfort in the wrist, but pain resolved. No new complaint of chest pain. No shortness of breath. No side effect of medication. PHYSICAL EXAMINATION: GENERAL: The patient is in no acute distress. VITAL SIGNS: Stable. HEART: S1 and S2. Normal and regular. LUNGS: Good bilateral air exchange. ABDOMEN: Soft and nontender. EXTREMITIES: No edema. No calf swelling. No tenderness. No acute ischemia. Bilateral wrist proliferation is healing slowly without any complication. DIAGNOSTIC DATA: Available diagnostic data reviewed. Acc-Cheks are acceptable. ASSESSMENT AND PLAN: Overall, the patient's general medical condition is stable. Plan as ordered. Akbar Rice MD
--- NOTE | 2018-05-15 14:49 | PCM.PYCHPN ---
Psychiatric Progress Note - Psychiatric Progress Note Patient seen today, length of contact: pt evaluated discussed with team chart reviewed Patient Chief Complaint: I am getting anxious and worried about relapse Problems Identified/Issues Discussed: pt evaluated , reported feeling increasingly anxious today , pt relates that to the legal charges he might face on discharge, pt also anxious about possibility of relapse on alcohol, motivational therapy provided, discussing with pt the coping skills with triggers to relapse, discussed increasing dose of neurontin to help with anxiety, no reported side effects pt denied any current thoughts of self harm, denied suicidal or homicidal ideation Medical Problems: pt has history of alcohol use since age 16, has hx of detox twice at [facility] [place], HISTORY OF SELF MUTILATIVE BEHAVIOR WHILE INTOXICATED DSM 5 Symptoms Update: alcohol induced mood disorder depression generalized anxiety Medication Change: Yes (increase neurontin) Medical Record Reviewed: Yes Mental Status Examination - Cognitive Function Orientation: Person, Place, Situation Memory: Intact Attention: WNL Concentration: WNL Association: WNL Fund of Knowledge: WN Decription of patient's judgement and insights: partial insight poor judgment - Mood Mood: Depressed, Anxious - Affect Affect: Constricted - Speech Speech: Appropriate - Formal Thought Process Formal Thought Process: Circumstantial Psychotic Thoughts and Behaviors: pt denied any current perceptual disturbances - Suicidal Ideation Suicidal Ideation: No - Homicidal Ideation Homicidal Ideation: No Goal/Treatment Plan - Goal/Treatment Plan Need for Continued Stay: Severe depression anxiety, Discharge may exacerbated symptoms Progress Toward Problem(s) and Goals/Treatment Plan: wellbutrin 150mg daily for depression increase neurontin 400mg tid for anxiety, decrease trazodone 50mg qhs for insomnia motivational group and supportive therapy referral outpatient ART program on discharge
[2018-05-16] MEDS: buPROPion SR 150 MG TABLET PO SCH (09:14)
--- NOTE | 2018-05-16 13:00 | PCM.PYCHPN ---
Psychiatric Progress Note - Psychiatric Progress Note Patient seen today, length of contact: pt evaluated discussed with team chart reviewed Patient Chief Complaint: I am less anxious wit increasing the neurontin Problems Identified/Issues Discussed: pt evaluated , reported feeling less anxious today , pt however feeling down relates that to the legal charges he might face on discharge, CBT provided, discussed gradual increase in dose of wellbutrin, no reported side effects pt denied any current thoughts of self harm, denied suicidal or homicidal ideation Medical Problems: pt has history of alcohol use since age 16, has hx of detox twice at [facility], HISTORY OF SELF MUTILATIVE BEHAVIOR WHILE INTOXICATED DSM 5 Symptoms Update: alcohol induced mood disorder depression Medication Change: Yes (increase wellbutrin) Medical Record Reviewed: Yes Mental Status Examination - Cognitive Function Orientation: Person, Place, Situation Memory: Intact Attention: WNL Concentration: WNL Association: WNL Fund of Knowledge: WNL Decription of patient's judgement and insights: partial insight poor judgment - Mood Mood: Depressed, Anxious - Affect Affect: Constricted - Speech Speech: Appropriate - Formal Thought Process Formal Thought Process: Circumstantial Psychotic Thoughts and Behaviors: pt denied any current perceptual disturbances - Suicidal Ideation Suicidal Ideation: No - Homicidal Ideation Homicidal Ideation: No Goal/Treatment Plan - Goal/Treatment Plan Need for Continued Stay: Severe depression anxiety, Discharge may exacerbated symptoms Progress Toward Problem(s) and Goals/Treatment Plan: increase wellbutrin 200mg daily for depression neurontin 400mg tid for anxiety, trazodone 50mg qhs prn for insomnia motivational group and supportive therapy referral outpatient ART program on discharge
--- NOTE | 2018-05-16 14:39 | PN ---
Copied To: Akbar Rice MD Attending MD: Akbar Rice MD DATE: 05/16/2018 MEDICAL FOLLOWUP SUBJECTIVE: The patient is seen and examined. Interim events noted. Psychiatry followup and intervention noted and appreciated. The patient remains in adult psych unit. The patient is awake and responsive . Feels okay. Denies any chest pain or shortness of breath. No specific issues reported by nursing staff. PHYSICAL EXAMINATION: GENERAL: The patient is in no acute distress. VITAL SIGNS: Stable. Physical exam is essentially unchanged. DIAGNOSTIC DATA: Available diagnostic data reviewed. ASSESSMENT AND PLAN: Overall, the patient's general medical condition is stable. Plan as ordered. Akbar Rice MD
[2018-05-17] MEDS: Bacitracin OINT 15GM TOP SCH ×2 (08:48→21:09)
[2018-05-17 09:30] VITALS: RESP 18
--- NOTE | 2018-05-17 11:59 | PN ---
Copied To: Akbar Rice MD Attending MD: Akbar Rice MD DATE: 05/17/2018 SUBJECTIVE: The patient is seen and examined. Interim events noted. Patient is for cardiac cath tomorrow at [facility]. Patient feels okay. Denies any chest pain or shortness of breath. . PHYSICAL EXAMINATION: GENERAL: The patient is in no acute distress. VITAL SIGNS: Stable. HEART: S1 and S2 normal and regular. LUNGS: Good bilateral air exchange. ABDOMEN: Soft, nontender. EXTREMITIES: No edema, no calf swelling, no tenderness, no acute ischemia. 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 DIAGNOSTIC DATA: Available diagnostic data reviewed. Patient's surgical site is also very clean. ASSESSMENT: Overall, patient's general medical condition is stable. As mentioned earlier, patient is for cardiac cath tomorrow. PLAN: As ordered. Case and plan discussed with patient. Akbar Rice MD
--- NOTE | 2018-05-17 12:43 | PN ---
Copied To: Akbar Rice MD Attending MD: Akbar Rice MD DATE: 05/17/2018 SUBJECTIVE: The patient seen and examined. Interim events noted. Psychiatry followup and intervention noted and appreciated. The patient . The patient is complaining of increasing redness of the suture site of the left wrist. No pain. PHYSICAL EXAMINATION: GENERAL: The patient is in no acute distress. VITAL SIGNS: Stable. HEART: S1 and S2. Normal and regular. LUNGS: Good bilateral air exchange. ABDOMEN: Soft and nontender. EXTREMITIES: Right wrist seems to be healing nicely, left wrist has a little bit increased redness but no clear sign of cellulitis. No edema. No calf swelling. No tenderness. No acute ischemia. 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 DIAGNOSTIC DATA: Available diagnostic data reviewed. ASSESSMENT AND PLAN: Overall, the patient is clinically stable. No need for oral antibiotic at this time for the wrist. we will apply local bacitracin. Plan as ordered. Akbar Rice MD
--- NOTE | 2018-05-17 13:46 | PCM.PYCHPN ---
Psychiatric Progress Note - Psychiatric Progress Note Patient seen today, length of contact: pt evaluated discussed with team chart reviewed Patient Chief Complaint: I AM BETTER WITH THE INCREASE IN WELLBUTRIN Problems Identified/Issues Discussed: pt evaluated , reported feeling less anxious today , pt also reported feeling less depressed with the increase of the dose of wellbutrin, no reported side effects , pt reported feeling anxious about the discharge ,CBT provided, pt denied any current thoughts of self harm, denied suicidal or homicidal ideation Medical Problems: pt has history of alcohol use since age 16, has hx of detox twice at [facility], HISTORY OF SELF MUTILATIVE BEHAVIOR WHILE INTOXICATED DSM 5 Symptoms Update: alcohol induced mood disorder depression Medication Change: No Medical Record Reviewed: Yes Mental Status Examination - Cognitive Function Orientation: Person, Place, Situation Memory: Intact Attention: WNL Concentration: WNL Association: WNL Fund of Knowledge: WNL Decription of patient's judgement and insights: partial insight poor judgment - Mood Mood: Depressed, Anxious - Affect Affect: Constricted - Speech Speech: Appropriate - Formal Thought Process Formal Thought Process: Circumstantial Psychotic Thoughts and Behaviors: pt denied any current perceptual disturbances - Suicidal Ideation Suicidal Ideation: No - Homicidal Ideation Homicidal Ideation: No Goal/Treatment Plan - Goal/Treatment Plan Need for Continued Stay: Severe depression anxiety, Discharge may exacerbated symptoms Progress Toward Problem(s) and Goals/Treatment Plan: wellbutrin 200mg daily for depression neurontin 400mg tid for anxiety, trazodone 50mg qhs prn for insomnia motivational group and supportive therapy referral outpatient ART program on discharge
[2018-05-18] MEDS: Bacitracin OINT 15GM TOP SCH (08:31)
[2018-05-18 09:42] VITALS: BP 113/68; PULSE 72; TEMP 97.9
--- NOTE | 2018-05-18 11:55 | PCM.PYCHDC ---
Mental Status Examination - Mental Status Examination Orientation: Person, Place, Situation Memory: Intact Mood: Neutral Affect: Broad Speech: Appropriate Attention: WNL Concentration: WNL Association: WNL Fund of Knowledge: WNL Formal Thought Process: No Impairment Description of patient's judgement and insight: partial insight poor judgment Psychotic Thoughts and Behaviors: pt denied any current perceptual disturbances, non elicited Suicidal Ideation: No Current Homicidal Ideation?: No Discharge Summary - Discharge Note Reason for Hospitalization: pt is a 32 YO male with history of alcohol abuse and deprssion was brought to [facility] ED via EMS after pt cut his wrist. Pt states that he was recently discharged from [facility] , last friday, where he was admitted for detox, after discharge pt continued to use alcohol about two bottles of whisky daily, on day of admission, he started experiencing psychotic symptoms, with visual hallucinations, seeing people invading his home, also seeing his parents being arrested, became very fearful and depressed, so he cut his wrist while intoxicated, pt then called police so they can help his parents pt had at least three prior alcohol detox and one inpatient admission at [facility] pt currently depressed and tearful, low energy,low motivation, passive suicidal ideation, denied active intent or plan on the unit, denid any current psychotic symptoms, reported increased anxiety Consultations:: List each consultation separately and include: 1. Reason for request. 2. Findings. 3. Follow-up Summary of Hospital Course include:: 1. Description of specific treatment plan utilized for patients during their course of treatmen. 2. Summarize the time- course for resolution of acute symptoms and/or regressed behaviors. 3. Describe issues identified and worked on during hospitalization. 4. Describe medication utilized. 5. Describe medical problems identified and treated. 6. Reassessment of suicide risk Summary of Hospital Course: pt on admission was started on neurontin for anxiety, it was uptitrated to 400mg tid pt was started on wellbutrin for depression it was increased to 200mg daily motivational group and supportive therapy provided, pt was compliant with treatment, attended groups, no reported side effects of medications on discharge mental status was stable , pt denied suicidal or homicidal ideation denied perceptual disturbances [facility] at [facility] - Diagnosis (1) ETOH abuse Current Visit: No Status: Acute - Final Diagnosis (DSM 5) Condition upon Discharge: GOOD DSM 5: alcohol induced mood disorder with depressive features alcohol use disorder generalized anxiety disorder depression Disposition: HOME/ ROUTINE Follow-up Treatment Plan: wellbutrin 200mg daily for depression neurontin 400mg tid for anxiety, trazodone 50mg qhs prn for insomnia motivational group and supportive therapy referral outpatient ART program on discharge Prescriptions/Medication Reconciliation: Bacitracin OINT 1 applic TOP BID 7 Days #1 tube buPROPion [Wellbutrin] 200 mg PO DAILY 30 Days #60 tab Gabapentin [Neurontin] 400 mg PO TID 30 Days #90 cap traZODone [Desyrel] 50 mg PO HS PRN 30 Days #30 tab PRN Reason: Insomnia - Antipsychotic Medications Pt discharged on 2 or more routine antipsychotic medications: No
--- NOTE | 2018-05-18 20:58 | PN ---
Copied To: Akbar Rice MD Attending MD: Akbar Rice MD DATE: 05/18/2018 SUBJECTIVE: The patient was seen and examined. Interim events were noted. The patient remains in adult psych unit. Psychiatric followup and intervention noted and appreciated. The patient is for a possible discharge home today. The patient feels okay. Denies any chest pain or shortness of breath. No side effect from medication. PHYSICAL EXAMINATION: GENERAL: The patient is in no acute distress. VITAL SIGNS: Stable. HEART: S1 and S2, normal and regular. LUNGS: Good bilateral air exchange. ABDOMEN: Soft and nontender. EXTREMITIES: The patient has bilateral wrists laceration. Left wrist has persistent redness, but no overt sign of cellulitis. Stitches are in good place with no gaping in the distal laceration site. The proximal laceration site is much better. The right wrist . 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 DIAGNOSTIC DATA: Available diagnostic data reviewed. ASSESSMENT AND PLAN: Overall, the patient is medically stable for discharge. The patient was advised to follow up with primary care physician. The patient was also given my office number to follow up if the patient wishes to follow up with me. Plan as ordered. Akbar Rice MD
== END 2018-05-18 13:22 | disposition home or self-care (01) | DRG 751 ==
LOC: H.PSYCH 15:56
PROVIDERS: ADMIT Psychiatry & Neurology Psychiatry; ATTEND Psychiatry & Neurology Psychiatry
PROC: HZ52ZZZ Individual Psychotherapy for Substance Abuse Treatment, Cognitive-Behavioral (ICD-10-PCS; principal; 2018-05-10)
PROC: GZHZZZZ Group Psychotherapy (ICD-10-PCS; 2018-05-10)
PROC: GZ58ZZZ Individual Psychotherapy, Cognitive-Behavioral (ICD-10-PCS; 2018-05-11)
DX: F10.14 Alcohol abuse with alcohol-induced mood disorder (principal); F32.9 Major depressive disorder, single episode, unspecified; F41.1 Generalized anxiety disorder; F22 Delusional disorders; G47.00 Insomnia, unspecified; Z91.5 Personal history of self-harm; E66.01 Morbid (severe) obesity due to excess calories; Z68.41 Body mass index [BMI] 40.0-44.9, adult; E11.9 Type 2 diabetes mellitus without complications; E78.00 Pure hypercholesterolemia, unspecified